=== PATIENT | female | born 1965 | race Caucasian/White ===

== ENCOUNTER 2016-10-21 06:38 | Day surgery (SDC) | payer OTHER ==
[2016-10-21] VITALS (15 sets, daily range): BP systolic 103–136; BP diastolic 50–83; PULSE 72–83; RESP 10–18; O2SAT 93–100
[~2016-10-21] VITALS: Ht 172.7 cm; Wt 99.6 kg
[2016-10-21] MEDS: Lactated Ringer's 1,000 ML IV SCH ×4 (05:00→21:53)
[~2016-10-21 06:38] MED LIST: ALBU8.5H2 INHALATION; CITA20TA11 PO; DIVA500T14 PO; Dextrose 10% 250 ML IV ONE; HYDR25TA4 PO; KEN25CR EXT; LAMO150T2 PO; PANT40TA3 PO; Phenazopyridine 97.5 mg Tablet PO ONE
[2016-10-21] MEDS ORDERED: Propofol 10,000 mCg/mL 20 mL Inj ONE (06:39)
[2016-10-21] MEDS ORDERED: Ondansetron 2 mg/mL 2 mL Inj ONE (06:39)
[2016-10-21] MEDS ORDERED: HYDROmorphone 1 mg/mL Inj ONE (06:39)
[2016-10-21] MEDS ORDERED: MetoCLOpramide 5 mg/mL 2 mL Inj ONE (06:39)
[2016-10-21] MEDS ORDERED: Phenylephrine/NS 100 mCg/mL 10 mL Syringe IVPUSH ONE (06:39)
[2016-10-21] MEDS ORDERED: EPHEDrine/NS 5 mg/mL 5 mL Syringe ONE (06:39)
[2016-10-21] MEDS ORDERED: fentaNYL-PF 50 mCg/mL 2 mL Inj ONE ×3 (06:39→18:49)
[2016-10-21] MEDS ORDERED: Phenazopyridine 97.5 mg Tablet ONE (13:25)
[2016-10-21] MEDS ORDERED: Sodium Chloride Bacteriostatic 30 mL Inj INJ ONE (14:01)
[2016-10-21] MEDS ORDERED: Lidocaine 1%-Epi 1:100,000 50 mL Inj INFILTRATE ONE (14:01)
[2016-10-21] MEDS ORDERED: Gentamicin 40 mg/mL 2 mL Inj IRRIGATION ONE (14:01)
[2016-10-21] MEDS ORDERED: Sodium Chloride LOK Flush 10 mL Syringe XX ONE (14:02)
[2016-10-21] MEDS: CeFAZolin Inj 2 GM in IV Premix 1 EACH IV ONE ×2 (14:15→14:26)
[2016-10-21] MEDS ORDERED: Lactated Ringer's 1,000 ML IV ONE ×2 (14:31→17:41)
[2016-10-21] MEDS ORDERED: Lactated Ringer's 500 ML IV PRN (14:36)
[2016-10-21] MEDS ORDERED: Lactated Ringer's 1,000 ML IV SCH (14:36)
--- NOTE | 2016-10-21 14:36 | PCM.HPANE ---
Patient Data Surgeon Admitting Provider: Attending Provider:Wes Elias MD Primary Care Physician:Anup Cortez MD Other Provider:Alonzo Peters Anesthesia Reason for Visit Incomplete Uterovaginal Prolapse Ht/WT & BMI Height (Feet): 5 Height (Inches): 8 Weight (Kilograms): 95.4 Body Mass Index 31.00 Allergies Coded Allergies: No Known Drug Allergies (Verified Allergy, Unknown, 10/16/16) Past Anesthesia History Anesthesia History: Denies:: Abnormal Airway, Anesthesia Reactions, Difficult Intubation, Fam Anesthesia Reaction, Fam Malignant Hypertherm, Malignant Hyperthermia Diabetes History Hx Diabetes?: No MRSA MRSA: No Medications Hypertension Medication: Yes Home Meds Incl Beta José Manuel: No Reported Medications Hydrochlorothiazide 25 Mg [id number] Mg PO DAILY 30 Days Ref 0 10/16/16 Albuterol HFA (Proair HFA)8.5 Gm Hfa.aer.ad2 Puffs INHALATION Q4H PRN For Shortness of Breath #1 INHALER 10/16/16 Lamotrigine 150 Mg [id number] Mg PO DAILY Ref 0 10/16/16 Citalopram 20 Mg Uymihi06 Mg PO DAILY Ref 0 10/16/16 Discontinued Reported Medications Triamcinolone Acet (Triamcinolone Acetonide Cream)1 Applic/0.25 Gm Cr1 Applic EXT BID #60 GM Ref 0 10/16/[address] 40 Mg Tablet.dr40 Mg PO DAILY Ref 0 10/16/16 Divalproex ER 500 Mg Tab.er.24i273 Mg PO DAILY Ref 0 *DAILY DOSING ONLY* Swallowed whole without chewing to avoid local irritation of the mouth and throat. 10/16/16 Loratadine-Expunged Drug, Do Not Renew! 10 Mg Zebflpm65 Mg PO DAILY 12/03/10 Oxycodone/APAP-Expunged Drug, Do Not Renew! (Percocet 5/325-Expunged Drug, Do Not Renew!)1 Each Tablet1-2 Tab PO PRN 12/03/10 Hydrochlorothiazide-Expunged, Do Not Renew! 25 Mg Aidcex57 Mg PO AM 12/03/10 lamoTRIgine-Expunged Drug, Do Not Renew! 100 Mg Tdqokr080 Mg PO DAILY 12/03/10 Citalopram-Expunged Drug, Do Not Renew! 20 Mg Ddrljy99 Mg PO DAILY 12/03/10 History History of ENT Problems?: No HEENT History: Denies:: Abnormal Airway Cataracts Difficult Intubation Dysphagia Glaucoma Sinus Problem TMJ Denture Type: None Teeth Condition: Broken Teeth Hx of Heart Problems?: Yes Cardiovascular History: Positive for:: Edema (lower extremity) Hypertension Irregular Heartbeat (occ feels skipped beats) Peripheral Vascular (varicose veins, venous stasis) Denies:: AICD Abdominal Aortic Aneurism Atrial Fibrillation Cardiac Surgery Chest Pain Congestive Heart Failure Coronary Artery Disease Heart Murmur Pacemaker Rheumatic Fever Thrombophlebitis Valvular Heart Disease Hx of Respiratory Problem?: Yes Respiratory History: Positive for:: Dyspnea (with fatigue- in last month) Use of Inhalers / NEBS (occasional for shortness of breath) Denies:: Asthma COPD Chest Surgery Cough Emphysema Hemoptysis Oxygen Administration Pneumonia Pulmonary Embolism Tuberculosis Use of C-PAP Machine Hx Neurologic Problems?: No Neurological History: Denies:: Alzheimer's Disease CVA Dementia Dizziness Headaches Multiple Sclerosis Parkinson's Disease Peripheral Neuropathy Seizures TIA Hx of GI Problems?: Yes Gastrointestinal History: Denies:: Cirrhosis Diverticulitis Gall Bladder Disease Gastroesphageal Reflux Gastrointestinal Bleeding Heartburn Hepatitis Hiatal Hernia Liver Disease Rectal Bleeding Hx of Problems?: Yes Genitourinary History: Denies:: HX of Hemodialysis Kidney Stones Urinary Tract Infection HX of Peritoneal Dialysis: No Female Hx: Denies:: Currently Endometriosis Pelvic Inflammatory Problems with Breasts? Skin History: Denies:: History Skin Disorders? Pressure Ulcers Hx Musculoskeletal Problems?: Yes Musculoskeletal History: Positive for:: Musculoskeletal Trauma (current hx of left knee OA- injected 10/06/16) Osteoarthritis Denies:: Back Injury Degenerative Joint Fibromyalgia Joint Replacement Myasthenia Gravis Rheumatoid Arthritis Systemic Lupus Hx of Psycho/Social Problems?: Yes Psycho Social History: Positive for:: Bipolar Disorder Denies:: Anxiety Hx Depression Suicide Attempt Hx Surgeries?: Yes (uterine ablation, D&C, christi) Hx Any Other Health Problems?: Yes Other History: Denies:: Cancer Endocrine Disease Hospitalization Thyroid Disease History Blood Transfusions: Positive for:: Accept Blood Products? Blood Transfusions (at age 20 ) Denies:: Blood Transfuse Reaction Hx Diabetes: No Hx Alcohol Use: NoHx Substance Use: NoHave You Smoked inLast 12 mo: Yes Stop/Bang P-Blood Pressure: treated: Yes B- Body Mass Index > 35 kg/m2: No A- Age over 50: No N- Neck Large Circumference: No G- Gender Male: No Risk Assessment Category Category 1A: Patient has history of documented sleep apnea, and HAS NOT received any narcotic, sedative or anesthesia administration during this stay. Category 1B: Patient has history of documented sleep apnea, and HAS received any narcotic , sedative or anesthesia administration during this stay Category 2: Patient has SUSPECTED Obstructive Sleep Apnea, and HAS received any narcotic , sedative or anesthesia administration during this stay. Category 3: Patient has SUSPECTED Obstructive Sleep Apnea and HAS NOT received narcotic, sedative or anesthesia administration during this stay. Category 4: Outpatient in Procedural Areas with known sleep apnea or who screen positive for High Risk via the STOP/BANG questionnaire. Exam Exam Vital Signs Vital Signs Date Time Temp Pulse Resp B/P Pulse Ox O2 Delivery O2 Flow Rate FiO2 10/21/16 07:39 36.1 72 16 114/65 96 Room Air General Appearance: Alert, Oriented X3, Cooperative, No Acute Distress HEENT/AIRWAY: MP 2, Neck Movement (FROM) Lungs: Clear to Auscultation, Normal Air Movement Heart: Exam Unremarkable, Regular Rate/Rhythm, No Murmurs/Rubs/Gallops Meds/Labs/Diagnostics Admission Meds Current Medications Lactated Ringer's (Lr) 1,000 ml @ 120 mls/hr Q8H20M IV Last administered on t 08:25; Start 10/21/16 at 05:00; Stop 10/21/16 at 13:19 Plan Impression Patient chart reviewed, patient interviewed and anesthestic plan with risks, benefits, and alternatives discussed, and informed consent obtained. NPO per Anesth. Guidelines: Yes ASA Physical Status: ASA2 Mod Systemic Disease Anesthetic Support Modalities: [place] Scope Anesthetic Plan: GA Bene/Risks/Altern/Consents: Yes HP Complete Prior to Induction: Yes Other After consideration of the potential risks the patient declined a duramorph spinal for postoperative pain control. Due to the scheduled length of the surgery a spinal for the primary surgical anesthetic was not warranted. Michele Suarez MD Oct 21, 2016 11:07
[2016-10-21] MEDS ORDERED: EPHEDrine Sulfate 50 mg/mL Inj IVPUSH PRN (14:40)
[2016-10-21] MEDS ORDERED: Phenylephrine 10,000 mCg/mL Inj IVPUSH PRN (14:40)
[2016-10-21] MEDS ORDERED: MetoCLOpramide 5 mg/mL 2 mL Inj IVPUSH PRN ×2 (14:40→18:05)
[2016-10-21] MEDS ORDERED: Atropine 0.4 mg/mL Inj IVPUSH PRN (14:40)
[2016-10-21] MEDS ORDERED: Labetalol 5 mg/mL 20 mL Inj IV PRN (14:40)
[2016-10-21] MEDS ORDERED: Ondansetron 2 mg/mL 2 mL Inj IVPUSH PRN ×2 (14:40→18:05)
[2016-10-21] MEDS ORDERED: Estrogens Conjugated 30 Gm Vaginal Cream VAGINAL ONE (17:44)
[2016-10-21] MEDS ORDERED: diphenhydrAMINE 25 mg Capsule PO PRN (18:05)
[2016-10-21] MEDS ORDERED: Alum-Mag Hydrox-Simeth 30 mL Suspension PO PRN (18:05)
[2016-10-21] MEDS: fentaNYL-PF 50 mCg/mL 2 mL Inj IVPUSH PRN ×6 (18:13→19:31)
[2016-10-21] MEDS: HYDROmorphone 1 mg/mL Inj IVPUSH PRN ×5 (18:19→19:36)
[2016-10-21] MEDS: oxyCODONE-Acetamin 5-325 mg Tablet PO PRN (19:23)
--- NOTE | 2016-10-21 19:39 | PCM.ANEP1 ---
Post Anesthesia PACU Phase 1 Assessment Vital Signs Vital Signs Date Time Temp Pulse Resp B/P Pulse Ox O2 Delivery O2 Flow Rate FiO2 10/21/16 18:50 75 13 134/69 97 Nasal Cannula 3 10/21/16 18:40 78 13 126/77 94 Nasal Cannula 3 10/21/16 18:30 78 12 126/69 98 Nasal Cannula 3 10/21/16 18:25 76 14 121/69 99 Nasal Cannula 3 10/21/16 18:20 75 13 129/73 98 Nasal Cannula 3 10/21/16 18:15 78 16 134/83 95 Room Air 10/21/16 18:10 78 15 134/82 100 Simple Mask 8 10/21/16 18:05 80 17 131/74 100 Simple Mask 8 10/21/16 18:01 36.0 83 10 136/78 100 Simple Mask 8 Anesthetic Administered: GA Level of Alertness: Awake, talking KEAEN's with Equal Strength: Yes Pain: No Nausea or Vomiting: No CV Function & Hydration Stable: Yes Airway Device: Oxygen Delivery: Room Air Lungs: Clear to Auscultation, Normal Air Movement Dermatome Level: Full Sensation PACU Phase 2 Assessment Complications: No Follow up Care: N/A Patient Instructions Provided: N/A Michele Suarez MD Oct 21, 2016 19:39
[2016-10-21] MEDS ORDERED: DIVA500T14 PO (19:47)
[2016-10-21] MEDS ORDERED: Divalproex (QD) 500 mg ER24 Tablet PO SCH (21:11)
[2016-10-21] MEDS: Acetaminophen IV 1,000 MG in IV Premix 1 EACH IV SCH (21:13)
[2016-10-21] MEDS: Senna-Docusate 8.6-50 mg Tablet PO SCH (21:39)
[2016-10-21] MEDS ORDERED: lamoTRIgine 100 mg Tablet PO SCH (21:55)
--- NOTE | 2016-10-21 22:58 | PCM.SURGOP ---
Surgical Operative Report Date of Service: Oct 21, 2016 Pre Operative Diagnosis 1. Stress incontinence in female N39.3 (625.6): Urodynamics revealed: urodynamic stress incontinence. 2. Uterovaginal prolapse, incomplete N81.2 (618.2): 3. Cystocele, midline N81.11 (618.01): 4. Rectocele N81.6 (618.04): Post Operative Diagnosis 1. Stress incontinence in female: Urodynamics revealed urodynamic stress incontinence. 2. POPQ Stage 2 Uterine prolapse and Enterocele 3. POPQ Stage 2 Cystocele 4. POPQ Stage 2 Rectocele Procedure: 1. vaginal hysterectomy with bilateral salpingectomy, 2. anterior repair and posterior repair 3. high uterosacral ligament vaginal vault suspension and enterocele repair. 4. TVT-O mid-urethral sling and cystoscopy Surgeon and Video Production Coordinator: Surgeon: Wes Elias MD Assistants: Salinas Soto MD Indication for Procedure Her assessment to date includes: 1. Stress incontinence in female N39.3 (625.6): Urodynamics revealed: urodynamic stress incontinence. 2. Uterovaginal prolapse, incomplete N81.2 (618.2): 3. Cystocele, midline N81.11 (618.01): 4. Rectocele N81.6 (618.04): 5. Pelvic muscle wasting N81.84 (618.83): 6. Smoker F17.200 The patient is a candidate for surgical prolapse management in the form of:. vaginal hysterectomy with bilateral salpingectomy, anterior repair and posterior repair with possible biologic graft augmentation, high uterosacral ligament vaginal vault suspension and enterocele repair. She is also a candidate for a TVT-O mid-urethral sling. The patient signed the consent form. She agreed with the risks, benefits, and alternatives to surgery. The risks included but not limited to recurrence or persistence of prolapse, recurrence of persistence of incontinence, development of voiding dysfunction, development of urinary urgency, urgency incontinence, frequency, and need for intermittent self-catheterization or prolonged indwelling catheterization, injury to other organs including bladder, bowel, nerves or blood vessels. Need for blood transfusion, need for temporary colostomy or urinary stenting. Development of vaginal scarring, dyspareunia, defecatory dysfunction, recurring pain, hematoma formation, urinary tract infection, cellulitis, necrotizing fascitis, and medical risks including myocardial infarction, stroke or VTE. She also understood the FDA warnings associated with the use of vaginal mesh (dysparunia, vaginal erosion, erosion into bowel/bladder/urethra, requiring further surgery to correct these complications). The patient understood the risks and benefits and consented to surgery. She understands smoking at time of surgery and recovery may lead to delayed healing and increased risk of infection/pulmonary morbidity, CVA, PE/DVT, cardiac morbidity. Findings: see dictation Procedure Details SURGICAL TECHNIQUE: The patient was brought to the operating room and was placed under general anesthesia. She was prepped and draped in the normal fashion for vaginal surgery with the legs in Yellofin stirrups. She was given a dose of IV ancef intraoperatively. She received 200 mg of oral pyridium 30 minutes prior to the procedure. 1. Vaginal Hysterectomy and bilateral salpingectomy: Examination under anesthesia revealed that the cervix and uterus were prolapsing to the level of the hymen (POPQ Stage 2). Lidocaine 0.5% with 1:200,000 of epinephrine was infiltrated pericervically. A pericervical incision was made with a cautery. Anteriorly, the bladder was sharply dissected off the cervix. Posteriorly, the cul de sac was entered with Sharp dissection. The bowels were packed with a mini-laparotomy sponge. The uterosacral ligaments were bilaterally clamped, divided and then tied in a transfixion fashion with 0- vicryl suture. Anteriorly, the Uterovesical peritoneum was entered with sharp dissection & the bladder was retracted upward with a right-angle retractor. The uterine vessels were then coagulated, and ligated using the Ligasure Impact System. The uterine body was delivered posteriorly. The utero-ovarian ligaments were clamped bilaterally, coagulated, ligatated and then tied using 0-Vicryl suture. The ovaries and tubes appeared normal. We left the ovaries in situ. However she agreed to have a bilateral salpingectomy. The tubes were excised using Ligasure. The uterus/cervix, and tubes were sent to pathology. It was noted that the pedicles were hemostatic. Hemostatic figure of 8 sutures were used to control bleeding at the cuff. 2. High uterosacral ligament vaginal vault suspension, cystoscopy and enterocele repair: Mini laparotomy sponges were packed to retract the bowel upwards. A pair of Allis clamps were placed along the intraperitoneal portions of the vagina at the 5 and 7 o'clock positions. Tension along these Allis clamps allowed for identification of the uterosacral ligaments bilaterally. The ureters were palpated bilaterally to avoid penetrating or injuring them. Two 0 Vicryl sutures were passed around each uterosacral ligaments at the level of the ischial spine bilaterally, totalling 4. Cystoscopy was performed. While holding the uterosacral ligament sutures under tension, brisk spillage of pyridium-stained urine was noted at both ureteric orifices. Next, two 3-0 Prolene suture was placed transversely through the cul-de-sac peritoneum. This was performed while using a gloved finger in the rectum as to avoid penetrating the underlying rectal mucosa. Tying the sutures obliterated the enterocele. 3. Anterior colporrhaphy: Lidocaine 0.5% with 1/932246 epinephrine was infiltrated along the anterior vaginal wall mucosa. A midline vertical incision was made through the anterior vaginal wall. The vaginal wall was dissected off the underlying pubocervical and pubovesical fascia. The dissection was extended laterally beyond the ischial pubic rami. It was noted that the pubocervical and pubovesical fascial tissues were sufficient and not thin. There was no paravaginal defects. The cystocele was plicated in 2 layers, the first layer with 2-0 Vicryl suture in interrupted fashion, the second layer with 2-0 Tycron suture in an interrupted fashion. A mild amount of anterior vaginal mucosa was needed to be excised. The vault suspension sutures were then passed through the planned apex of the vagina. The vagina was then reapproximated using 3-0 Vicryl suture in a running-locked fashion. The high uterosacral ligament vaginal vault suspension sutures were tied and this elevated the apex of the vagina high up into the hollow of the sacrum. 4. Posterior colpoperineorrhaphy: Lidocaine 0.5% with 1:20,000 of epinephrine was infiltrated along the perineum and posterior vaginal wall mucosa. A thin wedge of perineum was needed to be excised . A midline vertical incision was made through the posterior vaginal wall. The vaginal mucosa was dissected off the underlying rectovaginal tissues. It was noted the fascial tissues were not thin nor sufficient. The rectocele was plicated in one layer using 2-0 Vicryl suture in an interrupted fashion in the midline. A mild amount of excess posterior vaginal mucosa was excised. 5. TVT-Obturator sling and cystoscopy. Lidocaine 0.5% with 1/912058 epinephrine was infiltrated along the anterior vaginal wall mucosa at the level of the mid urethra. Midline vertical incision was made at that level, 2 periurethral tunnels were created with Metzenbaum scissors. Two stab incisions were created at the skin at the groin at a level 2 cm superior to the external urethral meatus and 2 cm lateral to the fold created between the vulva and thigh. Real catheter had already been inserted. A butterfly guide was inserted into the right periurethral tunnel, a curved helical needle was inserted on top of the guide and rotated out to the ipsilateral skin incision. The same procedure was performed on the contralateral side. Next the Real catheter was removed. Cystoscopy was performed. There was no inadvertent penetration of the sling through the vagina, urethra or bladder. In addition, the ureteric orifices were noted bilaterally to be functional by the brisk spillage of pyridium-stained urine. The bladder appeared normal. The plastic sheaths of the sling were removed. The bladder was filled with 300 mL of sterile water. Using the Crede maneuver, sling tension was appropriately adjusted. Also a right angle clamp was allowed to easily pass behind the sling so that the sling was placed in a tension-free manner. The sling ends were cut at the level of the skin. The skin was reapproximated using Mastisol, Steri-Strips and band-aids. The vagina was reapproximated using 3-0 Vicryl suture in a running fashion The vagina was packed with Premarin-lubricated packing. The patient's hips were periodically deflexed during the case. There were no complications. The EBL was 200 ml. All sponges and instruments were accounted for. She was taken to the recovery room in stable condition. Complications There were no periprocedural complications identified. Surgical Specimen Removed: Yes Specimen sent to Pathology: Yes Surgical Specimen description: uterus, cervix, tubes x 2 Anesthetic Plan: GA Grafts, Implants: Implants-See Implant Record Output, Estimated Blood Loss: 200 (ml EBL) Blood Administration during diaz: No Drains: None Catheters: Urethral 2 Way Real Post Operative Plan overnight stay in bed as outpatient as she requires a voiding trial in the am copies to: Salinas Soto MD; Zina Harper NP; Wes Elias MD, William Andre Z MD Oct 21, 2016 22:58
--- NOTE | 2016-10-21 23:30 | NUR ---
POST OP: Pt. arrived to [facility] from PACU at 195 in her own bed. Drowsy but able to wake up and answer questions appropriately, c/o lower abdominal pain on arrival, also wants to get up and go to the bathroom to have a BM. Given a fresh vaginal pad. Given the BSC, pt. insist that she should go to the bathroom immediately upon arrival. Pt. unsteady on her feet, helped to the BSC, NO BM. Explained that she has a vaginal packing and a Real catheter in place and that might be causing perineum pressure and sensation to have a BM. Wants the vaginal packing and the Real catheter removed, explained those must remain in place until tomorrow at 10:[address] orders. Later on pt. insisted that she needs to ambulate to the BR, she went to the BR with one person SBA, NO BM. Pt. has been up to the BR several times states that she is constipated. Given stool softener. Requesting snacks and food. States "I am hungry". Given snacks and a sandwich. Given IV Tylenol and PO Motrin. Pt. falls asleep quickly. On going care.
[2016-10-22 00:12] VITALS: BP 135/72; PULSE 70; RESP 18; O2SAT 94
[2016-10-22] MEDS: oxyCODONE-Acetamin 5-325 mg Tablet PO PRN ×2 (02:05→10:37)
[2016-10-22] MEDS: Senna-Docusate 8.6-50 mg Tablet PO SCH (04:17)
[2016-10-22 04:40] VITALS: BP 133/80; PULSE 64; RESP 17; O2SAT 95
[2016-10-22 05:16] LABS: BASOPHILS % (AUTO) 0.1 % (0-3); EOSINOPHILS % (AUTO) 0.4 % (0-5); MONOCYTES % (AUTO) 6.6 % (4-12); Mean Corpuscular Hemoglobin 29.8 pg (27.0-35.0); Mean Corpuscular Volume 89.7 fL (81-100); NEUTROPHILS % (AUTO) 85.3 % (40-74); Platelet Count 276 bil/L (150-400)
[2016-10-22] MEDS: Lactated Ringer's 1,000 ML IV SCH ×2 (05:55→10:03)
[2016-10-22] MEDS: Acetaminophen IV 1,000 MG in IV Premix 1 EACH IV SCH (06:37)
[2016-10-22] MEDS ORDERED: Albuterol 2.5 mg/3 mL Inhalation Solution NEB PRN (07:00)
[2016-10-22] MEDS ORDERED: Heparin 5,000 Unit/mL Inj SUBQ SCH (08:30)
[2016-10-22 08:35] VITALS: BP 123/67; PULSE 77; RESP 18; O2SAT 95
--- NOTE | 2016-10-22 10:13 | PCM.DIGYN ---
Surgical Discharge Instruction Dates of Hospitalization Date of Hospital Admission 10/21/16 outpatient Providers Admitting Physician: Primary Care Physician: Anup Cortez MD Attending Physician: Wes Elias MD Diagnosis at Time of Discharge Diagnosis at time of discharge 1. Stress incontinence in female: Urodynamics revealed urodynamic stress incontinence. 2. POPQ Stage 2 Uterine prolapse and Enterocele 3. POPQ Stage 2 Cystocele 4. POPQ Stage 2 Rectocele Post-operative diagnosis 1. Stress incontinence in female: Urodynamics revealed urodynamic stress incontinence. 2. POPQ Stage 2 Uterine prolapse and Enterocele 3. POPQ Stage 2 Cystocele 4. POPQ Stage 2 Rectocele Problems: Diet Discharge Diet: No restrictions Activity Discharge Activity-General: Restrict lifting to no greater than (10 lbs for 6 wk) Dressing and Incisional Care Dressing Care: Allow Steri Stripes to fall off Hygiene: May shower Follow Up Plan Follow-up appointment: Weeks (2; also f/u in [address] Elias's MA if home with feng) Call your provider for: Fever, Chills, Shortness of breath, Vomitting, Drainage at incision, Heavy vaginal bleeding, Wound redness, Increasing pain Wes Elias MD Oct 22, 2016 10:13 am
--- NOTE | 2016-10-22 11:02 | NUR ---
Voiding Trial Vaginal packing removed. 300cc sterile water placed into bladder. Real catheter removed. Pt able to void immediately 175 cc. Pt not able to void. MD notified. Bladder scan showed 215cc. 16 Italian Real catheter placed. 175cc out. Catheter plugged. Pt teaching done on catheter care. All questions answered. Care continues
--- NOTE | 2016-10-22 11:20 | NUR ---
Discharge All discharge teaching and instructions done with pt at bedside. Teaching done about feng catheter care and placement. Pt seemed to show understanding however she was very preoccupied with calling someone. Asked pt frequently if she had any questions or concerns about the plan of care. Pt demonstrated understanding of how the catheter works by showing primary RN how the pieces fit together. Hard copy of RX with pt. Pain medication given before discharge. Pt concerned about not having a BM. Stool softener given along with prune juice. Pt teaching on drinking fluids and balancing rest and activity. No items in the safe or pharmacy. Pt has all belongings. Pt to schedule apts to f/u with Dr. Elias.
--- NOTE | 2016-10-22 12:02 | PCM.PNSURG ---
Subjective Date of Service: Oct 22, 2016 Date of Service: Oct 22, 2016 Visit Information: Reason for Visit Incomplete Uterovaginal Prolapse Surgery/Surgery Date Post-Op Day # 1 Subjective: AVSS ambulating pain well controlled eating well OR explained Hct normal Postop General: No Complaints Gastrointestinal: Good Appetite Pain Management: PO Postop Activity: Ambulating Independently Objective Vital Sign- Last 8 Hours Date Time Temp Pulse Resp B/P Pulse Ox O2 Delivery O2 Flow Rate FiO2 10/22/16 08:35 37.0 77 18 123/67 95 Room Air 10/22/16 04:40 36.5 64 17 133/80 95 Nasal Cannula 2.00 Intake and Output- Last 8 Hour 10/22/16 Cumulative From/Thru 07:00 10/16/16 14:37 - 10/22/16 06:29 Intake Total 2418 ml 5168 ml Output Total 1250 ml 1700 ml Balance 1168 ml 3468 ml Intake Oral 1300 ml 1300 ml IV Total 1118 ml 3868 ml Output Urine Total 1250 ml 1300 ml Estimated Blood Loss 400 ml # Bowel Movements 0 0 General: Alert, Oriented X3, Cooperative Abdomen: Benign, Soft Catheters: Urethral 2 Way Real Result Diagram: 10/22/16 0445 Assessment & Plan Impression stable POD#1 Problems: Plan She failed the voiding trial. Do cath teaching prior to discharge. d/c home today f/u in 1 and 2 wk VTE Prophylaxis: Sub-Q Heparin (Unfractionated) Resuscitation Status: CPR: Attempt Resuscitation copies to: Anup Cortez MD; Wes Elias MD, William Andre Z MD Oct 22, 2016 12:02
--- NOTE | 2016-10-26 16:29 | PATH ---
SURGICAL PATHOLOGY Attending Physician:Wes Elias, CASE STATUS: Signed Out PATIENT NAME: PAULO BOWIE PID: [id number] : 1965 DATE COLLECTED:10/21/2016 00:00 SPECIMEN: 1: Uterus +/- tubes/ovaries, except neoplastic, prolapse 2: Fallopian Tube, Biopsy CLINICAL HISTORY: UTEROVAGINAL PROLAPSE, IRREGULAR BLEEDING, UTERINE PROLAPSE, HX OF ENDOMETRIAL ABLATION 1). UTERUS AND LEFT FALLOPIAN TUBE 2). RIGHT FALLOPIAN TUBE FINAL DIAGNOSIS: 1-2. Uterus and Bilateral Fallopian Tubes, Hysterectomy and Bilateral Salpingectomy: Secretory endometrium, negative for neoplasm. Cervix negative for neoplasm. Bilateral fallopian tubes negative for neoplasm. ICD10: N81.4 GROSS DESCRIPTION: The specimens are received in formalin, labeled with the patient's name, and sublabeled as the following: (1) uterus & left fallopian tube; (2) right fallopian tube. (1) The specimen consists of a uterus (189 g, 5.8 cm AP, 10.2 cm SI, 7.0 cm ML) and a detached fimbriated fallopian tube (length-6.5 cm, diameter-0.5 cm). The ovaries and 2nd fallopian tube are absent. The cervix (2.0 cm AP, 3.7 cm ML) has a vaginal cuff (up to 3.2 cm in depth), transverse os and patent endocervical canal. The endometrium (average thickness-0.1 cm) is sherman-alvarado smooth and flat. The myometrium (thickness-2.2 cm) is alvarado-white with a lacy pattern. The serosa is pale alvarado smooth and shiny. The fallopian tube has bain-alvarado smooth shiny serosa and a alvarado unremarkable lumen. Section code: (1A) anterior cervix; (1B) posterior cervix; (1C, 1D) anterior endomyometrium; (1E, 1F) posterior endomyometrium; (1G) fallopian tube, serially sectioned, field representative/health education; (1H) fimbria, bivalved, entirely submitted. (2) The specimen consists of a fimbriated fallopian tube (length-3.1 cm, diameter-0.5 cm). The serosa is dark maroon smooth and shiny. The lumen is alvarado and unremarkable. Section code: (2A) fallopian tube, serially sectioned, field representative/health education; (2B) fimbria, bivalved, entirely submitted. 10/22/16 SERAFIN ICD-9 CODES: CPT CODES: 2: 65651, 97166 Electronically Signed Out Serg Dorado MD, Ph.D. [facility] [address], [place] [address] Technical component performed at [facility], [address], [place], [address]
== END 2016-10-22 11:20 | disposition home or self-care (01) ==
LOC: SAS 06:38 → OSC 20:15 → SAS 10-22 11:20
PROVIDERS: ATTEND Obstetrics & Gynecology
DX: N81.2 Incomplete uterovaginal prolapse (principal); N81.6 Rectocele; N39.3 Stress incontinence (female) (male); F31.9 Bipolar disorder, unspecified; F17.210 Nicotine dependence, cigarettes, uncomplicated
CPT/HCPCS: 36415; 57288; 58263; 85025; 86850; C1771; J0131; J0690; J1170; J1580; J1644; J2250; J2370; J2405; J2704; J2765; J3010; J7120